=== PATIENT | male | born 1970 | race Caucasian/White ===

== ENCOUNTER 2021-12-03 10:11 | Emergency (ER) | payer OTHER, SELFPAY ==
--- NOTE | ~2021-12-03 | XR_ITS ---
EXAMINATION: XR chest 2V EXAM DATE: 12/03/2021 10:34 INDICATION: Cough. TECHNIQUE: Frontal and lateral projections of the chest obtained and reviewed. Comparison is made to prior examination from 04/22/2018. FINDINGS: Moderate amount of bilateral ill-defined airspace disease, most likely COVID pneumonia giv en appearance and community prevalence. No pneumothorax or pleural effusion. Cardiomediastinal silhou ette is normal. There are no osseous abnormalities identified. IMPRESSION: Moderate amount of airspace disease suspicious for COVID pneumonia. Reviewed, dictated and finalized at location B. NEL SALES MANAGER
[2021-12-03 10:23] VITALS: BP 95/73; PULSE 84; RESP 16; TEMP 36.1; O2SAT 97
--- NOTE | 2021-12-03 10:23 | ED.URI ---
HPI - URI/Sore Throat General Chief Complaint: Upper Respiratory Infection Stated Complaint: COUGH History of Present Illness HPI Narrative: This is a 51-year-old male presents to urgent care complaining cough with headache some shortness of breath. patient completed a covid test yesterday which was negative . He states he has been exposed but has not tested positive. 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 Related Data Allergies Allergy/AdvReac Type Severity Reaction Status Date / Time anesthesia Allergy Unknown Other Uncoded 04/22/18 08:47 Review of Systems Review of Systems: Cough, congestion, shortness of breath, headache, weakness All systems reviewed & are unremarkable except as noted in HPI and below PMFSH Comments At time as signature, I have reviewed and agree with nursing past medical, social, surgical and family history. Please see nursing chart for further information. There is no relevant family history pertinent to the presenting complaint. Exam Narrative: GENERAL:ill-appearing Pale, well-nourished, and in no acute distress. HEAD:Normocephalic, EYES: PERRLA ENT: Nares clear, no rhinorrhea or epistaxis. Mucous membranes moist. CHEST: Clear to course Auscultation. No respiratory distress. HEART: Regular rate and rhythm. Normal peripheral pulses. ABDOMEN: Soft EXTREMITIES: Normal range of motion. No edema. SKIN: Warm, dry, no rash. NEURO: No focal deficits. Alert and oriented x3. Course Course Level of Care: Express Care Visit Vital Signs Vital signs: Vital Signs Temperature 97 F L 12/03/21 10:23 Pulse Rate 84 12/03/21 10:23 Respiratory Rate 16 12/03/21 10:23 Blood Pressure 95/73 L 12/03/21 10:23 Pulse Oximetry 97 12/03/21 10:23 Temperature 97 F L 12/03/21 10:23 Pulse Rate 84 12/03/21 10:23 Respiratory Rate 16 12/03/21 10:23 Blood Pressure 95/73 L 12/03/21 10:23 Pulse Oximetry 97 12/03/21 10:23 MDM - URI/Sore Throat Differential Diagnosis Differential diagnosis: Likely upper respiratory infection, otitis media, sinusitis, bronchitis, influenza and pharyngitis Lab Data Labs: Lab Results 12/03/21 Range/Units 10:25 POC SARS CoV-2 Ag Negative (Negative) Influenza A Screen Negative Reference Range: Negative Influenza B Screen Negative Reference Range: Negative Discharge Plan Discharge Clinical Impression: Suspected 2019 novel coronavirus infection Upper respiratory infection Qualifiers: URI type: unspecified viral URI Qualified Code(s): J06.9 - Acute upper respiratory infection, unspecified Pneumonia Qualifiers: Pneumonia type: due to unspecified organism Laterality: bilateral Lung location: unspecified part of lung Qualified Code(s): J18.9 - Pneumonia, unspecified organism Patient Disposition: Home, Self-Care Condition: Stable Instructions: Antibiotic Form, Community Acquired Pneumonia (ED), COVID-19 (Coronavirus Disease 2019) (ED) Additional Instructions: Viral illness may last between 7-12days; antibiotic is NOT recommended at this time. Recommend antihistamine such as Benadryl at night time and Claritin/Zyrtec/Cassy during the day Also, recommend symptomatic treatment includes: rest, fluids, and increase humidity of the air at home. Recommend Acetaminophen or nonsteroidal anti-inflammatory agents (NSAIDs) as directed in the bottle to reduce fever and/pain/headache. Avoid smoking/second-hand smoke. Limit visits to areas with large crowds. Please schedule a follow-up visit with your personal physician for further evaluation and treatment within 3-5days. Including recheck and discussion of your blood pressure. If your symptoms persist, change or worsen significantly before you can contact your personal physician then pl
[2021-12-04 21:11] LABS: SARS-CoV-2 RNA PCR Positive
== END 2021-12-03 11:24 | disposition home or self-care (01) ==
PROVIDERS: Emergency Provider Nurse Practitioner Family
DX: U07.1 COVID-19 (principal); J18.9 Pneumonia, unspecified organism
CPT/HCPCS: 71046; 87426; 87804; 99203; C9803; G0463; U0003; U0005

== ENCOUNTER 2022-07-05 13:04 | Emergency (ER) | payer OTHER, SELFPAY ==
--- NOTE | 2022-07-05 13:05 | ED.ABDPAIN ---
HPI - Abdominal Pain General Stated Complaint: nausea, vomitting Source: patient and RN notes reviewed Mode of arrival: ambulatory Limitations: no limitations Related Data Allergies Allergy/AdvReac Type Severity Reaction Status Date / Time anesthesia Allergy Unknown Other Uncoded 04/22/18 08:47 Review of Systems Review of Systems: CONSTITUTIONAL: Denies malaise, chills, sweats, or fever. ENT: Denies rhinorrhea, congestion, sinus pain, otalgia or sore throat. CARDIOVASCULAR: Denies chest pain, palpitations, or edema. RESPIRATORY: Denies cough or dyspnea. GASTROINTESTINAL: Denies abdominal pain, nausea, vomiting, diarrhea, bloody, or mucous stools. GENITOURINARY: Denies dysuria or hematuria. MUSCULOSKELETAL: Denies myalgia. NEUROLOGIC: Denies headache. All systems reviewed & are unremarkable except as noted in HPI and below PMFSH Comments At time of signature, agree with nursing past medical, surgical, social and family history. There is no relevant family history pertinent to the presenting complaint Exam Narrative: GENERAL: Well-appearing, well-nourished, and in no acute distress. HEAD: Normocephalic, atraumatic. EYES: PERRLA, conjunctivae clear, and EOMI. ENT: Nares clear, turbinates pink, no rhinorrhea or epistaxis. Mucous membranes moist. Oropharynx without edema, erythema, or lesions. Tonsils not enlarged and without exudate. NECK: Supple. No lymphadenopathy CHEST: Speaks in full sentences. No respiratory distress. HEART: Regular rate and rhythm. ABDOMEN: Soft, flat, nondistended, nontender. No guarding, rebound tenderness, or rigidity. No pulsatile masses. Bowel sounds present in all four quadrants. No organomegaly. Negative Cote?s sign. No periumbilical tenderness. No Supra public tenderness or distension. Good femoral pulses bilaterally. No hernia noted. No scars or surface trauma. SKIN: Warm, dry, no rash. NEURO: Alert and oriented x3. PSYCH: Normal mood and affect Course Course Emergency Course: Patient is aware of diagnosis, understands and agrees to treatment plan. Anticipatory guidance given. Patient agrees to follow-up as directed and is aware of reasons to seek care at the emergency department. Portions of this record may have been created with voice recognition software Level of Care: Express Care Visit Vital Signs Vital signs: Reviewed. Critical Care Time Critical Care Time Critical Care Time: No Discharge Plan Discharge Prescriptions: No Action azithromycin [Zithromax Z-Gm] 250 mg tablet See Rx Instructions .ROUTE .COMPLEX Qty: 6 0RF Rx Instructions: For 250 mg dose pack: take 500 mg today (day 1), then 250 mg for 4 days (days 2-5) methylprednisolone [Medrol (Gm)] 4 mg tablets,dose pack See Rx Instructions .ROUTE .COMPLEX Qty: 21 0RF Rx Instructions: orally per package directions albuterol sulfate 90 mcg/actuation HFA aerosol inhaler 2 puff inhalation QID PRN (Reason: shortness of breath or wheezing) Qty: 6.7 0RF benzonatate 200 mg capsule 200 mg PO TID PRN (Reason: cough) Qty: 20 0RF Follow-up/Referrals: Sae,Charlie Briggs MD [Primary Care Provider] -
[2022-07-05 13:16] VITALS: BP 128/86; PULSE 82; RESP 20; TEMP 35.8; O2SAT 97
--- NOTE | 2022-07-05 13:40 | ED.GENADULT ---
HPI - General Adult General Chief complaint: Nausea/Vomiting/Diarrhea Stated complaint: nausea, vomitting Time Seen by Provider: 07/05/22 13:40 Source: family Mode of arrival: ambulatory Limitations: language barrier (ASA, reads lips, son available for translating) and other (fatigue, sleeping) History of Present Illness HPI narrative: 52-year-old male presents with concern for acute onset of lightheadedness, cold sweats, vomiting, fatigue. and son report he was cleaning a house today, approximately half an hour ago he found drug paraphernalia, bong's with water in them in his son's bedroom, he disposed of those. He denies any known ingesting of illicit substances. He was also cleaning with Lysol in a basement. They deny any previous symptoms, illness. Patient denies headache, chest pain, shortness of breath. He reports he feels high . [facility]: Somnel[facility] Related Data Allergies Allergy/AdvReac Type Severity Reaction Status Date / Time anesthesia Allergy Unknown Other Uncoded 04/22/18 08:47 Review of Systems Review of Systems: CONSTITUTIONAL:Reports cold sweats, feels high , feeling lightheaded EYES: Denies visual changes ENT: Denies swollen lips, swollen CARDIOVASCULAR: Denies chest pain, palpitations, or edema. RESPIRATORY: Denies cough or dyspnea. GASTROINTESTINAL: Denies abdominal pain, diarrhea. Reports nausea and vomiting MUSCULOSKELETAL: Denies back pain, joint pain, or myalgia. NEUROLOGIC: Denies numbness, weakness, or headache. All systems reviewed & are unremarkable except as noted in HPI and below PMFSH Comments At time of signature, agree with nursing past medical, surgical, social and family history. There is no relevant family history pertinent to the presenting complaint Exam Narrative: GENERAL: Nontoxic appearing and in no acute distress. Patient is very somnolent, falls asleep between questions HEAD: Normocephalic, atraumatic. EYES: PERRLA, sclera clear, and EOMI. No nystagmus. ENT: Nares clear. Mucous membranes moist. NECK: Supple. CHEST: No respiratory distress. Clear to auscultation. No bony deformities, no asymmetry. Speaks in full sentences. HEART: Regular rate and rhythm. No murmur heard. Normal peripheral pulses. ABDOMEN: Soft, nontender, nondistended, normal active bowel sounds, no palpable masses. SKIN: Warm, dry, no visible rash. NEURO: Alert and oriented x3. PSYCH: Somnolent Course Course Emergency Course: Patient and family are aware of, understands and agrees to be transferred to the emergency department. Patient agrees to proceed directly to the emergency department. Portions of this record may have been created with voice recognition software Level of Care: Express Care Visit Vital Signs Vital signs: Vital Signs Temperature 96.4 F L 07/05/22 13:16 Pulse Rate 82 07/05/22 13:16 Respiratory Rate 20 07/05/22 13:16 Blood Pressure 128/86 07/05/22 13:16 Pulse Oximetry 97 07/05/22 13:16 Temperature 96.4 F L 07/05/22 13:16 Pulse Rate 82 07/05/22 13:16 Respiratory Rate 20 07/05/22 13:16 Blood Pressure 128/86 07/05/22 13:16 Pulse Oximetry 97 07/05/22 13:16 Reviewed. Transfer Transfered to: [facility]: Other (Private vehicle) Transfer rationale: Somnolence, lightheaded this, fatigue, abnormal EKG Accepting physician: Denzel Soliz comments: Patient's originally requested to be transferred to [facility] or [place], however my advice was that the patient not be driven by private vehicle if they are driving to [place] due to the length of the drive and his somnolence and unknown health condition. [facility] was going to have an ETA of 1 hour which I was not comfortable with, explained this to the family, they are agreeable to be seen at [facility]. I am comfortable with patient being transferred via private vehicle to [facility] Medical Decision Krys
--- NOTE | 2022-07-05 13:46 | PC.NURSE ---
Patient is very sleepy. Falls asleep frequently. States he feels high . Color good. Skin warm and dry. Patient is deaf but reads lips and is able to communicate. Answers questions appropriately but continues to fall asleep
--- NOTE | 2022-07-05 13:53 | ECG_ITS ---
Measurements Intervals [place] Rate: 60 P: 0 DC: 160 QRS: -7 QRSD: 103 T: -15 QT: 395 QTc: 396 Interpretive Statements SINUS RHYTHM POSSIBLE LEFT VENTRICULAR HYPERTROPHY [VOLTAGE CRITERIA PLUS LAE OR QRS WIDENING] ST ABNORMALITY INFERIOR LEADS, CONSIDER ISCHEMIA ABNORMAL ECG NO PREVIOUS ECG AVAILABLE FOR COMPARISON Electronically Signed On 07-08-2022 15:58:23 CDT by Baltazar Ramirez M.D.
--- NOTE | 2022-07-05 13:58 | PC.NURSE ---
EKG done but does not show up in chart to document on. EKG done at 1348 and shown to Brissa Ortega.
--- NOTE | 2022-07-05 14:11 | PC.NURSE ---
Continues to sleep. Awakens easily when aroused. Family deciding where to transfer patient to. Initially wanted to go to [place], but then decided to go to [place] [facility] due to time limit to go to [place] per EMS.
== END 2022-07-05 14:26 | disposition short-term general hospital (02) ==
PROVIDERS: Emergency Provider Nurse Practitioner; PCP Internal Medicine
DX: R40.0 Somnolence (principal); R94.31 Abnormal electrocardiogram [ECG] [EKG]
CPT/HCPCS: 93005; 99212; G0463

== ENCOUNTER 2022-07-05 14:35 | Emergency (ER) | payer OTHER, SELFPAY ==
[2022-07-05] VITALS (8 sets, daily range): BP systolic 103–122; BP diastolic 68–73; PULSE 64–88; RESP 11–20; TEMP 36.4; O2SAT 93–97
--- NOTE | ~2022-07-05 | CT_ITS ---
EXAMINATION: CT brain wo con DATE: 07/05/2022 16:14 INDICATION: Feeling weird, NEAR SYNCOPE, WEAKNESS, EMESIS X 1 . TECHNIQUE: Computed tomography (CT) of the head was performed without intravenous contrast. The mA wa s adjusted according to patient size. Iterative reconstruction technique was employed. The dose-lengt h product was 908.00 mGy-cm. COMPARISON: None FINDINGS: Motion limited examination requiring repeat imaging. No acute intracranial hemorrhage or extra-axial fluid collection. No hydrocephalus, mass, or herniation. No acute ischemic infarct. Unremarkable dural venous sinus attenuation. No acute osseous abnormality. The aerated spaces are clear. Prior left mastoidectomy. Small left mastoid effusion. Left cochlear implant. IMPRESSION: Motion limited examination. No definite acute intracranial process. Reviewed, dictated and finalized at location K.
--- NOTE | ~2022-07-05 | XR_ITS ---
EXAMINATION: XR chest 1V portable Exam Date/Time: 07/05/2022 15:50 CDT HISTORY: WEAKNESS, N/V X TODAY, NO CARDIAC HX,NO LUNG HX Comparison: 12/03/2021. RESULT: Lines, tubes, and devices: None. Lungs and pleura: Clear. Cardiomediastinal silhouette: Stable. Other: No acute osseous or upper abdominal finding. IMPRESSION: No acute cardiopulmonary process. Reviewed, dictated and finalized at location K.
--- NOTE | 2022-07-05 14:53 | ECG_ITS ---
Measurements Intervals [place] Rate: 74 P: 21 DE: 149 QRS: -8 QRSD: 99 T: -18 QT: 373 QTc: 414 Interpretive Statements SINUS RHYTHM POSSIBLE LEFT VENTRICULAR HYPERTROPHY [VOLTAGE CRITERIA PLUS LAE OR QRS WIDENING] NO PREVIOUS ECG AVAILABLE FOR COMPARISON Electronically Signed On 07-05-2022 15:17:05 CDT by Carmella Ruth M.D.
[2022-07-05 15:13] LABS: Basophils Percent Auto 0.2 % (0.2-1.2); Hematocrit 41.7 % (42.0-52.0); Hemoglobin 13.9 g/dL (14.0-18.0); Immature Granulocyte Absolute 0.03 K/mm3 (0.00-0.031); Immature Granulocyte Percent A 0.4 % (0-0.5); Lymphocytes Absolute Auto 1.36 K/mm3 (0.9-3.2); Lymphocytes Percent Auto 15.9 % (18.3-44.2); Mean Corpuscular HGB Conc 33.3 g/dl (32-36); Mean Platelet Volume 9.6 fl (7.4-10.4); Monocytes Absolute Auto 0.4 K/mm3 (0.1-0.6); Monocytes Percent Auto 4.7 % (2.6-8.5); Neutrophils Absolute Auto 6.7 K/mm3 (1.3-6.7); Neutrophils Percent Auto 78.8 % (45.5-73.1); Platelet Count Result 168 k/mm3 (150-375); Red Blood Count 4.09 M/mm3 (4.6-6.20); Red Cell Distribution Width 13.3 % (11.5-14.5); White Blood Count 8.5 K/mm3 (4.5-10.0)
[2022-07-05 15:28] LABS: Alanine Aminotransferase 32 U/L (6-50); Albumin Level 4.5 g/dL (3.5-5.1); Alkaline Phosphatase 53 U/L (38-126); Anion Gap 7 mmol/L (8-16); Aspartate Amino Transferase 31 U/L (17-59); Bilirubin,Total 0.4 mg/dL (0.2-1.3); Blood Urea Nitrogen 26 mg/dL (9-20); Calcium 9.2 mg/dL (8.4-10.2); Carbon Dioxide 31 mmol/L (22-30); Chloride 103 mmol/L (98-107); Estimated Glomerular Filt Rate 53; Glucose 105 mg/dL (65-110); Potassium 4.3 mmol/L (3.4-5.0); Sodium 141 mmol/L (137-145)
--- NOTE | 2022-07-05 15:37 | ED.NAVMDI ---
HPI - Nausea/Vomiting/Diarrhea General Chief complaint: Nausea/Vomiting/Diarrhea Stated complaint: nausea and vomiting Time Seen by Provider: 07/05/22 15:37 Source: patient, family and RN notes reviewed Mode of arrival: ambulatory Limitations: no limitations History of Present Illness HPI Narrative: 52 years old white male presents with sudden onset of lightheadedness, hot feeling, cold sweats, feeling weird in the brain while cleaning the bathroom with [place] and water. Patient been cleaning the bathroom numerous of time with the same components of [place] and water without any trouble. Patient referred to us from urgent care for further evaluation. He denies any fever, chills, headache, chest pain, shortness of breath, palpitation, having similar symptoms. 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 Patient is healthy otherwise, does not take medicine at home, does not smoke or uses drugs, drinks occasionally. Patient vomited once at the urgent care prior to arrival to the emergency room. Currently feeling almost back to normal denying any symptoms but feels sleepy Related Data Allergies Allergy/AdvReac Type Severity Reaction Status Date / Time anesthesia Allergy Unknown Other Uncoded 04/22/18 08:47 Review of Systems Review of Systems: All systems reviewed & are unremarkable except as noted in HPI and below Exam Narrative: General appearance: Well-developed, well-nourished Skin: Normal color Head: Normocephalic, nontraumatic Eyes: Clear conjunctiva ENT: Oropharynx normal, ears normal, nose normal Neck: Supple, nontender Chest and respiratory: Airway patent, no respiratory distress, no accessory muscle use Heart: Regular rate/rhythm Abdomen: Soft, nontender, no organomegaly, quiet bowel sounds Vascular: Normal peripheral pulses, normal capillary refill. Musculoskeletal: Normal range of motion, nontender back Neurologic: Alert and oriented ?3, UNDERWRITER SOLICITATION DIRECTOR is normal as tested, no gross motor deficit Course Reevaluation(s) Reevaluation #1: Currently patient feeling back to normal, declined IV fluid although his creatinine is a little bit elevated. No old records for comparison. Date: 07/05/22 Time: 16:49 Vital Signs Vital signs: Vital Signs Temperature 36.4 C 07/05/22 14:51 Pulse Rate 88 07/05/22 14:51 Respiratory Rate 20 07/05/22 14:51 Blood Pressure 109/73 07/05/22 14:51 Pulse Oximetry 97 07/05/22 14:51 Oxygen Delivery Room Air 07/05/22 14:51 Temperature 36.4 C 07/05/22 14:51 Pulse Rate 88 07/05/22 14:51 Respiratory Rate 20 07/05/22 14:51 Blood Pressure 109/73 07/05/22 14:51 Pulse Oximetry 97 07/05/22 14:51 Oxygen Delivery Room Air 07/05/22 14:51 MDM - Nausea/Vomiting/Diarrhea Lab Data Result diagrams: 07/05/22 15:01 07/05/22 15:01 Labs: Lab Results 07/05/22 07/05/22 Range/Units 15:01 15:01 WBC 8.5 (4.5-10.0) K/mm3 RBC 4.09 L (4.6-6.20) M/mm3 Hgb 13.9 L (14.0-18.0) g/dL Hct 41.7 L (42.0-52.0) % MCV 102.0 H (80-100) fl MCH 34.0 (26-34) pg MCHC 33.3 (32-36) g/dl RDW 13.3 (11.5-14.5) % Plt Count 168 (150-375) k/mm3 MPV 9.6 (7.4-10.4) fl Immature Gran % (Auto) 0.4 (0-0.5) % Neut % (Auto) 78.8 H (45.5-73.1) % Lymph % (Auto) 15.9 L (18.3-44.2) % [place] % (Auto) 4.7 (2.6-8.5) % Eos % (Auto) 0.0 (0-4.4) % Baso % (Auto) 0.2 (0.2-1.2) % Lymph # (Auto) 1.36 (0.9-3.2) K/mm3 [place] # (Auto) 0.4 (0.1-0.6) K/mm3 Eos # (Auto) 0.0 (0-0.3) K/mm3 Baso # (Auto) 0.0 (0.0-0.1) K/mm3 Abs Immat Gran (auto) 0.03 (0.00-0.031) K/mm3 Absolute Neuts (auto) 6.7 (1.3-6.7) K/mm3 Absolut
--- NOTE | 2022-07-05 16:51 | PC.NURSE ---
pt refused fluids, stating no need fopr them. feeling normal per the pt
== END 2022-07-05 17:25 | disposition home or self-care (01) ==
PROVIDERS: Emergency Medicine; Emergency Provider Emergency Medicine; PCP Internal Medicine
DX: E86.0 Dehydration (principal); R53.1 Weakness; R94.31 Abnormal electrocardiogram [ECG] [EKG]
CPT/HCPCS: 36415; 70450; 71045; 80053; 85025; 93005; 99284